=== PATIENT | female | born 1950 | race African-American/Black ===

== ENCOUNTER 2021-08-21 15:25 | Emergency (ER) | payer SELFPAY ==
[~2021-08-21] VITALS: Ht 167.6 cm; Wt 57.0 kg
[2021-08-21] MEDS ORDERED: AZIT500T2 PO (16:07)
[2021-08-21] MEDS ORDERED: ALBU6.7H9 INH (16:07)
[2021-08-21] MEDS ORDERED: P50 PO (16:07)
[2021-08-21 16:32] VITALS: BP 161/71
== END 2021-08-21 17:33 | disposition home or self-care (01) ==
LOC: ER 15:25
DX: J20.9 Acute bronchitis, unspecified (principal); J18.9 Pneumonia, unspecified organism; E78.00 Pure hypercholesterolemia, unspecified; F17.210 Nicotine dependence, cigarettes, uncomplicated; Z88.8 Allergy status to other drugs, medicaments and biological substances; Z71.6 Tobacco abuse counseling
CPT/HCPCS: 93005; 99283; 99406